=== PATIENT | female | born 1970 | race Caucasian/White ===

== ENCOUNTER 2022-02-17 17:06 | Outpatient (RCR) | payer BC, SELFPAY ==
--- NOTE | 2022-02-17 17:58 | PTOPEVAL ---
Thank you for referring Benita Gil to [facility].? The patient is scheduled to be seen for therapy? __2__x/week for 10 visits. Please review, sign, date and return this plan of care EDSON. I agree with and certify that the following plan of care is medically necessary. Referring Physician Date Admitting Provider: Attending Provider: Willy Richardson, MD Referring Provider: *PT Outpatient Evaluation Start: 02/17/22 17:07 Freq: Status: Active Protocol: Document 02/17/22 17:08 HAO (Rec: 02/17/22 17:58 HAO [email or web address]) Therapy Assessment Status Assessment Status Assessment Status Evaluation Evaluation Information Problem Diagnosis right rotator cuff arthropathy , right shoulder pain Onset 02/17/21 Subjective Information Pt. reports that she began Query Text:As Reported By Patient/ noticing right shoulder pain Family about 1 year ago. 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 She notices pain described in the right side of the neck, front of the right shoudler, into the brachial region. She reports that she has numbness into the right hand but had nerve conduction test that said she had carpal tunnel. She reports that she has had xray but no MRI. She reports that she had gone through therapy in past, with only mild relief. She reports that her goal is to decrease her right shoulder pain. Prior Level of Function Comments Additional Prior Level of Function She reports that she cannot Comments currently do her usual housework, especially overhead . Her pain does effect her ability to do her job and pain will increase with driving. She reports that she does wake at night due to pain. Pain Assessment Pain Scale Pain Scale Used Numeric (1 - 10) Self Report Pain Assessment Right Shoulder(s) Reported Pain Level 8 Pain Description Aching Pain Radiation Right Arm Lowest Pain Intensity 0 Greatest Pain Intensity 9 Pain Score Pain Score 8: Self Report Interventions Used Interventions Used By Clinicians Activity or
--- NOTE | 2022-03-27 07:12 | PTOPEVAL ---
Thank you for referring Benita Gil to [facility].? The patient is scheduled to be seen for therapy? ____x/week for ___ weeks. Please review, sign, date and return this plan of care EDSON. I agree with and certify that the following plan of care is medically necessary. Referring Physician Date Admitting Provider: Attending Provider: Willy Richardson, Referring Provider: *PT Outpatient Evaluation Start: 02/17/22 17:07 Freq: Status: Active Protocol: Document 03/26/22 16:30 J (Rec: 03/26/22 17:43 [facility] [email or web address]) Therapy Assessment Status Assessment Status Assessment Status Re-evaluation Evaluation Information Problem Diagnosis right rotator cuff arthropathy , right shoulder pain Onset 02/17/21 Subjective Information Pt reports that her pain has Query Text:As Reported By Patient/ not gotten much better. She Family continues to have numbness in her R hand that comes and goes . The numbness in her R hand appears in all fingers of her hand. 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 She is hoping to find a new job that does not require her to sit for prolonged periods of time. Pain Assessment Timing of Pain Assessment Timing of Pain Assessment Pre-Treatment Pain Scale Pain Scale Used Numeric (1 - 10) Self Report Pain Assessment Right Shoulder(s) Reported Pain Level 5 Radicular Pain Location R hand Pain Score Pain Score 5: Self Report Interventions Used Interventions Used By Clinicians Activity or ADL's,Education, Electrical Stimulation, Exercise,Traction Cervical and Lumbar ROM Cervical ROM Cervical Flexion (0-60) 60 Query Text:Active in Degrees Cervical Extension (0-70) 30 Query Text:Active in Degrees Cervical Lateral Flexion Right (0-50) 40 Query Text:Active in Degrees Cervical Lateral Flexion Left (0-50) 40 Query Text:Active in Degrees Cervical Rotation Right (0-90) 80 Query Text:Active in Degrees Cervical Rotation Left (0-90) 75 Query Text:Active in Degrees Upper Extremity Range of Motion Scapular/ Shoulder Range of Motion Right Shoulder Flexion - Active 155
== END 2022-05-05 17:13 | disposition home or self-care (01) ==
LOC: CHSPT 17:06
PROVIDERS: PCP Family Medicine; Visit Provider Family Medicine
DX: M12.811 Other specific arthropathies, not elsewhere classified, right shoulder (principal)
CPT/HCPCS: 97012; 97014; 97110; 97140; 97161; G0283

== ENCOUNTER 2022-06-06 07:40 | Outpatient (CLI) | payer BC, SELFPAY ==
--- NOTE | ~2022-06-06 | US_ITS ---
EXAMINATION: US right upper quadrant DATE: 06/06/2022 08:43 INDICATION: Hepatomegaly TECHNIQUE: Multiple grayscale and Doppler ultrasound images of the abdomen were obtained. COMPARISON: None available FINDINGS: The head and body of the pancreas are normal. The pancreatic tail is obscured by bowel gas. The enlarged liver measures 18.0 cm in craniocaudal length. No focal liver mass is identified. The l iver is diffusely low in attenuation when compared with the spleen, consistent with hepatic steatosis . There appears to be focal sparing near the gallbladder fossa. No surface nodularity. Normal hepatop etal flow in the main portal vein. The gallbladder is normal with no abnormal wall thickening, perich olecystic fluid or stones. The normal common bile duct measures 2 mm. There was no sonographic De León sign. IMPRESSION: 1. Diffuse hepatic steatosis. 2. Hepatomegaly. Reviewed, dictated and finalized at location A.
--- NOTE | ~2022-06-06 | CT_ITS ---
EXAMINATION: CT diagnostic chest wo con DATE: 06/06/2022 08:14 INDICATION: Right upper chest pain and shortness of breath TECHNIQUE: Computed tomography (CT) of the chest was performed without intravenous contrast. The dose -length product was 447.26 mGy-cm. Automated exposure control and iterative reconstruction technique were employed. COMPARISON: None FINDINGS: Mild atherosclerosis. No evidence for aortic aneurysm. No significant pleural or pericardia l effusion. Heart size is normal. The visualized aspects of the upper abdomen are unremarkable. There are a few scattered calcified granulomas in the lungs. There is a 3 mm right lower lobe nodule, like ly benign. Mild thoracic spondylosis. No acute osseous abnormality. IMPRESSION: 1. No acute cardiopulmonary disease. No findings to account for patient's symptoms. 2: Right lower lobe nodule measuring 3 mm, likely benign. Consider follow-up low dose CT chest in 12 months. Reviewed, dictated and finalized at location B. IMPRESSION: 1. No acute cardiopulmonary disease. No findings to account for patient's sympt oms. 2: Right lower lobe nodule measuring 3 mm, likely benign. Consider follow-up l ow dose CT chest in 12 months.
== END 2022-06-06 07:41 | disposition home or self-care (01) ==
LOC: CHSIMG 07:42
PROVIDERS: PCP Family Medicine; Visit Provider Registered Nurse
DX: R16.0 Hepatomegaly, not elsewhere classified (principal); R05.9 Cough, unspecified
CPT/HCPCS: 71250; 76705

== ENCOUNTER 2022-06-06 08:13 | Emergency (ER) | payer BC, SELFPAY ==
[2022-06-06 08:15] VITALS: BP 124/78; PULSE 69; RESP 18; TEMP 35.9; O2SAT 96
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
[2022-06-06] MEDS: KETOROLAC 30 MG/ML VIAL (*BKC) IM (08:39)
[2022-06-06 08:56] VITALS: BP 123/74; PULSE 98; RESP 20; TEMP 35.9; O2SAT 97
== END 2022-06-06 09:15 | disposition home or self-care (01) ==
PROVIDERS: Emergency Provider Internal Medicine Critical Care Medicine; PCP Family Medicine
DX: R51.9 Headache, unspecified (principal)
CPT/HCPCS: 96372; 99283; J1885

== ENCOUNTER 2022-10-22 20:15 | Emergency (ER) | payer BC, SELFPAY ==
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
[2022-10-22 20:39] VITALS: BP 117/86; PULSE 90; RESP 20; TEMP 36; O2SAT 98
[2022-10-22] MEDS: KETOROLAC (*BKC) 60 MG/2 ML VIAL IM (20:54)
== END 2022-10-22 21:26 | disposition home or self-care (01) ==
PROVIDERS: Emergency Provider Emergency Medicine; PCP Family Medicine
DX: M54.2 Cervicalgia (principal); V48.5XXA Car driver injured in noncollision transport accident in traffic accident, initial encounter
CPT/HCPCS: 96372; 99283; J1885

== ENCOUNTER 2022-10-25 18:01 | Emergency (ER) | payer BC, SELFPAY ==
[2022-10-25 18:04] VITALS: BP 145/78; PULSE 82; RESP 18; TEMP 36.6; O2SAT 100
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
[2022-10-25] MEDS: KETOROLAC (*BKC) 60 MG/2 ML VIAL IM (18:32)
[2022-10-25 18:39] VITALS: BP 145/78; PULSE 82; RESP 20; TEMP 36.6; O2SAT 97
== END 2022-10-25 18:50 | disposition home or self-care (01) ==
PROVIDERS: Emergency Provider Emergency Medicine; PCP Family Medicine
DX: S13.4XXD Sprain of ligaments of cervical spine, subsequent encounter (principal); V89.2XXD Person injured in unspecified motor-vehicle accident, traffic, subsequent encounter; E78.5 Hyperlipidemia, unspecified; K21.9 Gastro-esophageal reflux disease without esophagitis; F32.A Depression, unspecified
CPT/HCPCS: 96372; 99283; J1885

== ENCOUNTER 2023-08-18 10:00 | Outpatient (CLI) | payer OTHER, SELFPAY ==
--- NOTE | ~2023-08-18 | CT_ITS ---
EXAMINATION: CT lung screening DATE: 08/18/2023 10:28 INDICATION: SMOKER SCREENING-CURRENT,CHORNIC SOB,RT SIDE CP,COUGH TECHNIQUE: Computed tomography (CT) of the chest was performed without intravenous contrast. Addition al 3D reconstructions utilizing coronal maximum intensity projection (MIP) were performed. Automated exposure control and iterative reconstruction technique were employed. The dose-length product was 16 9.23 mGy-cm. COMPARISON: 06/06/2022 FINDINGS: Again seen are several small calcified nodules clustered along the bronchi in the anterobasilar segme nt of the left lower lobe consistent with old granulomatous disease. Additional small calcified granu emre in the right upper lobe. Unchanged 3 mm likely noncalcified granuloma in the anterobasilar segme nt of the right lower lobe. No new or enlarging pulmonary nodules, pneumonia, pulmonary edema or pleu ral effusion. Heart size is normal. Small amount of atherosclerotic coronary artery calcific location along the left anterior descending coronary artery. No pericardial effusion. Thoracic aorta is jazmin l in caliber. No pathologically enlarged thoracic lymphadenopathy. Visualized upper abdomen is unrema rkable. Mild thoracic spondylosis. Chronic mild anterior wedging of T7. IMPRESSION: 1. Lung-RADS category 2: Benign appearance or behavior. Continue annual screening with noncontrast lo w-dose chest CT in 12 months. Reviewed, dictated and finalized at location A. IMPRESSION: 1. Lung-RADS category 2: Benign appearance or behavior. Continue annual screeni ng with noncontrast low-dose chest CT in 12 months.
== END 2023-08-18 10:01 | disposition home or self-care (01) ==
PROVIDERS: PCP Family Medicine; Visit Provider Family Medicine
DX: Z12.2 Encounter for screening for malignant neoplasm of respiratory organs (principal); Z87.891 Personal history of nicotine dependence
CPT/HCPCS: 71271

== ENCOUNTER 2023-09-16 11:01 | Outpatient (CLI) | payer OTHER, SELFPAY ==
--- NOTE | ~2023-09-16 | XR_ITS ---
XR shoulder RT min 2V 09/16/2023 11:21 Indication: Right shoulder pain. Polyarthralgias. Procedure: 4 views right shoulder Comparison: No prior studies for comparison. Findings: No fracture, subluxation or dislocation. There is anatomic alignment. Surrounding osseous s tructures are unremarkable. No soft tissue abnormality. Impression: 1: No significant bone or joint abnormality. Reviewed, dictated and finalized at location B. GRAPHIC COMPUTATOR Impression: 1: No significant bone or joint abnormality.
== END 2023-09-16 11:02 | disposition home or self-care (01) ==
PROVIDERS: PCP Family Medicine
DX: M25.511 Pain in right shoulder (principal)
CPT/HCPCS: 73030

== ENCOUNTER 2024-06-05 21:52 | Emergency (ER) | payer OTHER, SELFPAY ==
[2024-06-05 21:53] VITALS: BP 118/91; PULSE 79; RESP 18; TEMP 36.1; O2SAT 98
--- NOTE | 2024-06-05 22:01 | ED.LOWEXIN ---
HPI - Extremity Injury (Lower) General Chief Complaint: Extremity Injury, Lower Stated Complaint: vaccination Time Seen by Provider: 06/05/24 22:01 History of Present Illness HPI Narrative: abrasion left leg 5 days ago by a sharp metal. unknown last tetanus shot. No other injuries. No fever, no chills, no discharge, no redness or pain at the site of injury. Related Data Home Medications Medication Instructions Recorded Confirmed fluoxetine 10 mg capsule 10 mg DAILY 10/22/22 10/25/22 loratadine 10 mg tablet 10 mg DAILY 10/22/22 10/25/22 pantoprazole 40 mg tablet,delayed 40 mg PO DAILY 10/22/22 10/25/22 release rosuvastatin 40 mg tablet 40 mg DAILY 10/22/22 10/25/22 Allergies Allergy/AdvReac Type Severity Reaction Status Date / Time egg Allergy Unknown Verified 10/22/22 20:36 milk Allergy Gastrointestinal Verified 10/22/22 20:36 Upset Review of Systems Review of Systems: All systems reviewed & are unremarkable except as noted in HPI and below PMFSH Past Medical History Medical History Chronic chest pain Depression GERD (gastroesophageal reflux disease) Hyperlipidemia Migraine Seasonal allergies Exam Narrative: General appearance: Well-developed, well-nourished Skin: Normal color 2 cm abrasion at the left lower leg. Dry and clean, no discharge, no erythema, no swelling Chest and respiratory: Airway patent, no respiratory distress, no accessory muscle use Heart: Regular rate/rhythm Vascular: Normal peripheral pulses, normal capillary refill. Musculoskeletal: Normal range of motion, nontender back Neurologic: Alert and oriented ?3, [employer] is normal as tested, no gross motor deficit Course Vital Signs Vital signs: Vital Signs Temperature 36.1 C L 06/05/24 21:53 Pulse Rate 79 06/05/24 21:53 Respiratory Rate 18 06/05/24 21:53 Blood Pressure 118/91 H 06/05/24 21:53 Pulse Oximetry 98 06/05/24 21:53 Oxygen Delivery Room Air 06/05/24 21:53 Temperature 36.1 C L 06/05/24 21:53 Pulse Rate 79 06/05/24 21:53 Respiratory Rate 18 06/05/24 21:53 Blood Pressure 118/91 H 06/05/24 21:53 Pulse Oximetry 98 06/05/24 21:53 Oxygen Delivery Room Air 06/05/24 21:53 Critical Care Time Critical Care Time Critical Care Time: No Discharge Plan Discharge Clinical Impression: Abrasion of left leg Patient Disposition: Home, Self-Care Condition: Stable Instructions: Abrasion (ED) Additional Instructions: Return if symptoms are worsening , call your family physician for appointment, take Tylenol as as needed for aches and pain, continue home medications. topical Neosporin t.i.d. for 3 days Prescriptions: No Action tizanidine [Zanaflex] 4 mg capsule 4 mg PO Q8H PRN (Reason: muscle spasticity) Qty: 10 0RF nabumetone 750 mg tablet 750 mg PO BID 10 Days Qty: 20 0RF pantoprazole 40 mg tablet,delayed release (DR/EC) 40 mg PO DAILY fluoxetine 10 mg capsule 10 mg DAILY loratadine 10 mg tablet 10 mg DAILY rosuvastatin 40 mg tablet 40 mg DAILY Follow-up/Referrals: Dylan,MD Willy [Primary Care Provider] -
[2024-06-05] MEDS: TETANUS,DIPHTHERIA,AC PERTUSSIS ADULT 0.5 ML (ADACEL) IM (22:13)
[2024-06-05] MEDS: NEOMYCIN/POLYMYXIN/BACITRACIN OINTMENT 15 GM TUBE 1 APPLIC TOPICAL (22:14)
== END 2024-06-05 22:28 | disposition home or self-care (01) ==
LOC: CHSED 22:08
PROVIDERS: Emergency Provider Emergency Medicine; PCP Family Medicine
DX: S80.812A Abrasion, left lower leg, initial encounter (principal); Z23 Encounter for immunization; W26.8XXA Contact with other sharp object(s), not elsewhere classified, initial encounter
CPT/HCPCS: 90471; 90715; 99282